=== PATIENT | female | born 1940 | race Caucasian/White ===

== ENCOUNTER → 2019-01-11 13:50 | Outpatient (CLI) | payer OTHER, SELFPAY ==
--- NOTE | 2019-01-11 | DI.ECHO.S_ITS ---
[place] +---------+ [facility] +---------+ : : [address] : : : : [id number] : : : : Phone: [phone] +---------+ Echocardiogram Report + + :Name: JORGE SHEARER Study Date: 01/11/2019 Height: 64 in : :[facility] Exam Location: [facility] Weight: 148 lb : : Gender: Female BSA: 1.7 m2 : :: 1940 Age: 78 yrs BP: 140/60 mmHg: :Reason For Study: AFIB : : Performed By: Chepe Larson : :Referring: MEL KENNY : + + Interpretation Summary 1) Normal left ventricular size, thickness, wall motoin, and systolic function (EF 65-70%). 2) Mildly enlarged right ventricle with normal function. 3) The left atrium is moderately dilated. 4) The right atrium is severely dilated. 5) There is mild to moderate aortic regurgitation. 6) There is moderate tricuspid regurgitation. 7) The right ventricular systolic pressure is estimated to be at least 45 mmHg based on an estimated right atrial pressure of 8 mm Hg. 8) Compared to the Echo done 06/12/2014, no significant change. Procedure: A two-dimensional transthoracic echocardiogram with color flow and Doppler was performed. The study quality was technically good. Comparison is made with the echocardiogram of 8/25/14. The patient was in normal sinus rhythm during the exam. Left Ventricle: The left ventricle is normal in size. There is normal left ventricular wall thickness. The ejection fraction is estimated to be 65-70%. There are no focal wall motion abnormalities. Right Ventricle: The right ventricle is mildly dilated. The right ventricular systolic function is normal. Atria: The left atrium is moderately dilated. The right atrium is severely dilated. The interatrial septum is intact with no evidence for an atrial septal defect. Mitral Valve: The mitral valve is normal in structure and function. There is mild mitral regurgitation. Aortic Valve: The aortic valve is trileaflet. The aortic valve opens well. There is no aortic valve stenosis. There is mild to moderate aortic regurgitation. Tricuspid Valve: The tricuspid valve leaflets are thin and pliable. There is moderate tricuspid regurgitation. The right ventricular systolic pressure is estimated to be at least 45 mmHg based on an estimated right atrial pressure of 8 mm Hg. Pulmonic Valve: The pulmonic valve is normal in structure and function. There is trace pulmonic regurgitation. Great Vessels: The aortic root is normal size. The dimensions of the ascending aorta are normal. The pulmonary artery is normal size. The IVC is of normal diameter and collapses less than 50% with a sniff. This suggests a right atrial pressure of 8 mm Hg. Pericardium/ Pleura There is no pericardial effusion. There is no pleural effusion. MMode/2D Measurements & Calculations LVIDd: 4.5 cm LVOT diam: 2.0 cm LVIDs: 2.2 cm Ao root diam: 2.4 cm FS: 49.7 % Aortic Jxn: 2.0 cm EPSS: 0.19 cm asc Aorta Diam: 2.9 cm IVSd: 0.80 cm Ao Arch Diam (Prox Trans): 2.5 cm LVPWd: 0.88 cm LV winn. diameter/BSA (cm/m^2): 2.6 LV sys. diameter/BSA (cm/m^2): 1.3 LA dimension: 3.9 cm RA long axis: 6.3 cm LA A2 area: 24.6 cm2 RA area: 32.4 cm2 LA A4 area: 24.1 cm2 RA vol: 142.1 ml LA length (vol): 6.4 cm RA : 82.6 ml/m2 LA vol: 78.6 ml IVC diam: 2.1 cm LA vol index: 45.7 ml/m2 RVD1 (basal): 5.1 cm RVD2 (mid): 3.9 cm Doppler Measurements & Calculations Ao V2 max: 182.9 cm/sec LVOT Max Markell: 124.6 cm/sec Ao V2 mean: 122.7 cm/sec LV V1 max P.2 mmHg Ao max P.4 mmHg LV V1 VTI: 29.6 cm Ao mean P.8 mmHg CHAO(I,D): 2.8 cm2 Ao V2 VTI: 34.7 cm CHAO(V,D): 2.2 cm2 sev ratio: 0.85 CHAO indexed to BSA (cm^2/m^2): 1.6 AI P1/2t: 599.3 msec AI dec slope: 221.1 cm/sec2 MV E max markell: 76.6 cm/sec TR max markell: 303.7 cm/sec MV A max markell: 69.8 cm/sec TR max P.9 mmHg MV E/A: 1.1 PA V2 max: 95.4 cm/sec Med Peak E' Markell: 7.6 cm/sec PA V2 mean: 70.8 cm/sec E/E' med: 10.1 PA mean P.2 mmHg Lat Peak E' Markell: 10.3 cm/sec PA pr(Accel): 36.6 mmHg E/E' lat: 7.4 PA Accel Time: 0.09 sec E/e' average: 8.8 MV dec time: 0.15 sec SV(LVOT): 96.7 ml Reading Physician:06:05 PM
== END ==
PROVIDERS: PCP Family Medicine; Visit Provider Internal Medicine Cardiovascular Disease
DX: I08.3 Combined rheumatic disorders of mitral, aortic and tricuspid valves (principal); I48.0 Paroxysmal atrial fibrillation
CPT/HCPCS: 93306

== ENCOUNTER → 2019-06-11 20:03 | Outpatient (CLI) | payer OTHER, SELFPAY | PROVIDERS: PCP Family Medicine; Visit Provider Physician Assistant | DX: N39.0 Urinary tract infection, site not specified (principal); R31.9 Hematuria, unspecified | CPT/HCPCS: 87077; 87086; 87186 ==

== ENCOUNTER → 2019-08-06 12:09 | Outpatient (CLI) | payer OTHER, SELFPAY | PROVIDERS: PCP Family Medicine; Visit Provider Nurse Practitioner | DX: R30.0 Dysuria (principal) | CPT/HCPCS: 87077; 87086 ==

== ENCOUNTER → 2019-09-06 13:55 | Outpatient (CLI) | payer OTHER, SELFPAY | PROVIDERS: PCP Family Medicine; Visit Provider Physician Assistant | DX: R30.0 Dysuria (principal) | CPT/HCPCS: 87086 ==

== ENCOUNTER → 2021-01-04 15:02 | Outpatient (CLI) | payer OTHER, SELFPAY | PROVIDERS: PCP Family Medicine; Visit Provider Physician Assistant | DX: R30.0 Dysuria (principal) | CPT/HCPCS: 87077; 87086; 87186 ==

== ENCOUNTER → 2021-04-05 10:37 | Outpatient (CLI) | payer OTHER, SELFPAY | PROVIDERS: PCP Family Medicine; Visit Provider Physician Assistant | DX: N30.00 Acute cystitis without hematuria (principal) | CPT/HCPCS: 87086 ==

== ENCOUNTER → 2021-05-28 11:01 | Outpatient (CLI) | payer OTHER, SELFPAY ==
[2021-05-28 11:48] LABS: Add Manual Diff / Slide Review NO; Basophils Absolute Auto 0 /uL (0-100); Basophils Percent Auto 0.8 % (0-2); Eosinophils Absolute Auto 0 /uL (0-450); Eosinophils Percent Auto 0.9 % (2-4); Hematocrit 37.9 % (36-46); Hemoglobin 12.6 g/dL (12.0-16.0); Lymphocytes Absolute Auto 1400 /uL (1100-4500); Lymphocytes Percent Auto 30.8 % (25-40); Mean Corpuscular HGB Conc 33.1 % (30-36); Mean Corpuscular Volume 93.6 fL (80-100); Monocytes Absolute Auto 400 /uL (0-900); Monocytes Percent Auto 9.1 % (3-14); Neutrophils Absolute Auto 2700 /uL (1500-7000); Neutrophils Percent Auto 58.4 % (50-75); Platelet Count 216 X10^3/uL (150-400); Red Blood Cell Count 4.05 X10^6/uL (4.0-5.2); White Blood Cell Count 4.6 X10^3/uL (4.5-11.0)
[2021-05-28 12:30] LABS: BUN Creatinine Ratio 33.3 (6-22); Blood Urea Nitrogen 18 mg/dL (7-17); Calcium 9.5 mg/dL (8.4-10.2); Carbon Dioxide 30 mmol/L (22-32); Chloride 102 mmol/L (98-107); Cholesterol 181 mg/dL (140-199); Estimated Glomerular Filt Rate > 60.0 mL/min (>60); Glucose 98 mg/dL (80-110); HDL Cholesterol 92 mg/dL (40-60); HEMOLYSIS < 15 (0-50); LDL Cholesterol Calculated 81 mg/dL (<100); Potassium 4.1 mmol/L (3.4-5.1); Sodium 136 mmol/L (137-145); Triglycerides 39 mg/dL (35-150)
== END ==
PROVIDERS: PCP Family Medicine; Referring Provider Internal Medicine Cardiovascular Disease; Visit Provider Internal Medicine Cardiovascular Disease
DX: E78.5 Hyperlipidemia, unspecified (principal); Z79.01 Long term (current) use of anticoagulants; I48.0 Paroxysmal atrial fibrillation
CPT/HCPCS: 36415; 80048; 80061; 85025

== ENCOUNTER → 2021-05-30 13:34 | Outpatient (CLI) | payer OTHER, SELFPAY ==
--- NOTE | 2021-05-30 | DI.ECHO.S_ITS ---
[place] +---------+ [facility] +---------+ : : [address] : : : : [id number] : : : : Phone: [phone] +---------+ Echocardiogram Report + + :Name: JORGE SHEARER Study Date: 05/30/2021 Height: 63.5 in: :[facility] ReadingLocation: Weight: 130 lb : : Gender: Female BSA: 1.6 m2 : :: 1940 Age: 81 yrs BP: 130/74 mmHg: :Reason For Study: TRICUSPID INSUFFICIENCY : :Ordering Physician: ASHLIE, : :MEL Performed By: Yessi Castillo : :Referring: MEL KENNY : + + Interpretation Summary 1) Normal left ventricular size, thickness, wall motoin, and systolic function (EF 65-70%). 2) Mildly enlarged right ventricle with normal function. 3) The left atrium is moderately dilated. 4) The right atrium is severely dilated. 5) There is mild to moderate aortic regurgitation. 6) There is moderate tricuspid regurgitation. 7) The right ventricular systolic pressure is estimated to be at least 49 mmHg based on an estimated right atrial pressure of 8 mm Hg. 8) Compared to the Echo done 01/11/2019, no significant change. Procedure: A two-dimensional transthoracic echocardiogram with color flow and Doppler was performed. The study quality was technically adequate. Comparison is made with the echocardiogram of 01/11/2019. The patient was in sinus rhythm with heart rates between 58-67 bpm during the exam. Left Ventricle: The left ventricle is normal in size and wall thickness. The ejection fraction is estimated to be 65-70%. Right Ventricle: The right ventricle is mildly dilated. The right ventricular systolic function is normal. Atria: The left atrium is moderately dilated. The right atrium is severely dilated. There is no Doppler evidence for an interatrial shunt. Mitral Valve: The mitral valve leaflets appear mildly thickened, but open well. There is mild mitral annular calcification. There is mild mitral regurgitation. Aortic Valve: The aortic valve is trileaflet. The aortic valve opens well. The aortic valve is slightly calcified. There is no aortic valve stenosis. There is mild to moderate aortic regurgitation. Tricuspid Valve: The tricuspid valve leaflets are thin and pliable. The right ventricular systolic pressure is estimated to be at least 49 mmHg based on an estimated right atrial pressure of 8 mm Hg. There is moderate tricuspid regurgitation. Pulmonic Valve: The pulmonic valve is not well seen, but is grossly normal. There is trace pulmonic regurgitation. Great Vessels: The aortic root is normal size. The dimensions of the ascending aorta are normal. The IVC is dilated (diameter is greater than 2.1 cm) yet it collapses greater than 50% with a sniff. This suggests a right atrial pressure of 8 mm Hg. Pericardium/ Pleura There is no pericardial effusion. There is no pleural effusion. MMode/2D Measurements & Calculations LVIDd: 4.8 cm LVOT diam: 2.0 cm LVIDs: 2.8 cm Ao root diam: 2.6 cm FS: 41.8 % asc Aorta Diam: 3.1 cm IVSd: 0.68 cm Ao Arch Diam (Prox Trans): 2.6 cm LVPWd: 0.71 cm LV winn. diameter/BSA (cm/m^2): 3.0 LV sys. diameter/BSA (cm/m^2): 1.7 LA A2 area: 20.7 cm2 RA long axis: 6.3 cm LA A4 area: 23.9 cm2 RA area: 25.1 cm2 LA length (vol): 5.9 cm RA vol: 84.4 ml LA vol: 71.3 ml RA : 52.1 ml/m2 LA vol index: 44.0 ml/m2 IVC diam: 2.2 cm RVD1 (basal): 3.1 cm TAPSE: 2.9 cm Doppler Measurements & Calculations Ao V2 max: 159.0 cm/sec AI P1/2t: 701.0 msec Ao V2 mean: 100.0 cm/sec AI dec slope: 183.8 cm/sec2 Ao max P.1 mmHg Ao mean P.8 mmHg Ao V2 VTI: 29.7 cm MV E max markell: 68.8 cm/sec TR max markell: 320.7 cm/sec MV A max markell: 70.6 cm/sec TR max P.1 mmHg MV E/A: 0.97 PA V2 max: 100.7 cm/sec Med Peak E' Markell: 9.9 cm/sec PA V2 mean: 67.5 cm/sec E/E' med: 7.0 PA mean P.1 mmHg Lat Peak E' Markell: 10.2 cm/sec PA pr(Accel): 22.5 mmHg E/E' lat: 6.7 E/e' average: 6.9 MV dec time: 0.22 sec Reading Physician:09:26 AM
== END ==
PROVIDERS: PCP Family Medicine; Referring Provider Internal Medicine Cardiovascular Disease; Visit Provider Internal Medicine Cardiovascular Disease
DX: I08.3 Combined rheumatic disorders of mitral, aortic and tricuspid valves (principal)
CPT/HCPCS: 93306

== ENCOUNTER → 2021-09-24 12:10 | Outpatient (CLI) | payer OTHER, SELFPAY ==
--- NOTE | 2021-09-24 12:13 | DI.US.S_ITS ---
PROCEDURE: US PELVIC COMPLETE INDICATIONS: PELVIC PAIN; CHANGE IN BOWEL HABITS TECHNIQUE: Real-time scanning was performed of the pelvic organs, with image documentation. Additional endovaginal scanning was necessary due to incomplete visualization of the adnexal and endometrial structures by transabdominal scanning. COMPARISON: None. FINDINGS: Uterus: Uterus is surgically absent. No gross abnormality is seen in vaginal cuff region. Ovaries: Bilateral ovaries are surgically absent. No adnexal mass or fluid is seen. Other: No pathologic free abdominal or pelvic fluid. IMPRESSION: Prior hysterectomy and bilateral oophorectomy. No abnormality is seen in pelvis. We strive to produce accurate, complete, and clear reports of imaging services. To assist us in improving patient care, this report was composed using standard report templates and voice recognition software. Therefore, it may contain abnormal punctuation, insertions and/or omissions. Occasional wrong-word or sound-alike substitutions may occur. Though we review the report and make efforts to correct it, we do recommend that the report be read carefully in proper context to recognize any text inaccuracies. Dictated by: Alexx Blandon M.D. on 09/24/2021 at 14:13 Approved by: Alexx Blandon M.D. on 09/24/2021 at 14:14
--- NOTE | 2021-09-24 12:13 | DI.US.S_ITS ---
PROCEDURE: US ABDOMEN COMPLETE INDICATIONS: PELVIC PAIN; CHANGE IN BOWEL HABITS TECHNIQUE: Real-time scanning was performed of the abdominal and retroperitoneal organs, with image documentation. COMPARISON: None. FINDINGS: Liver: Liver is normal in size and homogeneous in echotexture. Gallbladder: Hydropic appearance of the gallbladder. No wall thickening, pericholecystic fluid, or shadowing gallstones. Biliary ducts: Intrahepatic bile ducts are non-dilated. Extrahepatic bile duct caliber measures 8.4 mm. Echogenic material within the CBD, which may reflect sludge. Pancreas: Visualized portions of the pancreas are sonographically normal. Spleen: Spleen is normal in size and homogeneous in echotexture. Kidneys: Kidneys are normal in size and echotexture. Right kidney measures 11.4 cm long; left kidney measures 11.4 cm long. No hydronephrosis or nephrolithiasis. No solid masses. Aorta: Visualized aorta is normal in caliber at less than 3 cm. Iliacs: Proximal common iliac arteries are normal in caliber at less than 2.5 cm. IVC: Intrahepatic inferior vena cava is patent. Miscellaneous: No free abdominal fluid. IMPRESSION: 1. Hydropic appearance of the gallbladder with possible sludge in the CBD. Dictated by: Harinder Pike M.D. on 09/24/2021 at 14:39 Approved by: Harinder Pike M.D. on 09/24/2021 at 14:42
== END ==
PROVIDERS: PCP Family Medicine; Referring Provider Family Medicine; Visit Provider Family Medicine
DX: R10.2 Pelvic and perineal pain (principal); R19.4 Change in bowel habit; Z90.710 Acquired absence of both cervix and uterus; Z90.722 Acquired absence of ovaries, bilateral
CPT/HCPCS: 76700; 76830; 76856

== ENCOUNTER → 2022-05-15 09:16 | Outpatient (CLI) | payer OTHER, SELFPAY ==
--- NOTE | 2022-05-15 | DI.ECHO.S_ITS ---
[place] +---------+ Hospital +---------+ : : [address] : : : : [id number] : : : : Phone: [phone] : : [phone] +---------+ Echocardiogram Report + + :Name: JORGE SHEARER Study Date: 05/15/2022 Height: 63 in : :[facility] ReadingLocation: Weight: 135 lb : : Gender: Female BSA: 1.6 m2 : :: 1940 Age: 82 yrs BP: 157/89 mmHg: :Reason For Study: TRICUSPID INSUFFICIENCY : :Ordering Physician: ASHLIE, : :MEL Performed By: Yessi Castillo : :Referring: MEL KENNY : + + Interpretation Summary 1) Normal left ventricular size, thickness, wall motion, and systolic function (EF 60-65%). 2) Mildly enlarged right ventricle with normal function. 3) Severe biatrial enlargement. 4) There is mild to moderate mitral regurgitation. 5) There is mild to moderate aortic regurgitation. 6) There is moderate tricuspid regurgitation. 7) The right ventricular systolic pressure is estimated to be at least 40 mmHg based on an estimated right atrial pressure of 3 mm Hg. 8) Compared to the Echo done 05/30/2021, mitral regurgitation has increased from mild to mild-moderate on this study. Procedure: A two-dimensional transthoracic echocardiogram with color flow and Doppler was performed. The study quality was technically good. Comparison is made with the echocardiogram of 05/30/2021. The patient was in sinus rhythm with heart rates between 60-65 bpm during the exam. Left Ventricle: The left ventricle is normal in size and wall thickness. The ejection fraction is estimated to be 60-65%. Left ventricular systolic function appears normal without focal wall motion abnormalities. Right Ventricle: The right ventricle is normal in size and function. Atria: The left atrium is severely dilated. The right atrium is severely dilated. There is no Doppler evidence for an interatrial shunt. Mitral Valve: The mitral valve leaflets appear mildly thickened, but open well. There is mild mitral annular calcification. There is mild to moderate mitral regurgitation. Aortic Valve: The aortic valve is slightly calcified. The aortic valve is trileaflet. The aortic valve opens well. There is no aortic valve stenosis. There is mild to moderate aortic regurgitation. Tricuspid Valve: The tricuspid valve leaflets are thin and pliable. There is moderate tricuspid regurgitation. The right ventricular systolic pressure is estimated to be at least 40 mmHg based on an estimated right atrial pressure of 3 mm Hg. Pulmonic Valve: The pulmonic valve leaflets are thin and pliable; valve motion is normal. There is no pulmonic valvular regurgitation. Great Vessels: The aortic root is normal size. The dimensions of the ascending aorta are normal. The IVC is of normal diameter and collapses greater than 50% with a sniff. This suggests a low right atrial pressure of 3 mm Hg. Pericardium/ Pleura There is no pericardial effusion. There is no pleural effusion. MMode/2D Measurements & Calculations LVIDd: 4.1 cm LVOT diam: 2.0 cm LVIDs: 2.5 cm Ao root diam: 2.7 cm FS: 39.4 % asc Aorta Diam: 3.1 cm IVSd: 0.77 cm Ao Arch Diam (Prox Trans): 2.6 cm LVPWd: 0.78 cm LV winn. diameter/BSA (cm/m^2): 2.5 LV sys. diameter/BSA (cm/m^2): 1.5 LA A2 area: 25.2 cm2 RA long axis: 6.0 cm LA A4 area: 24.7 cm2 RA area: 24.9 cm2 LA length (vol): 5.5 cm RA vol: 87.7 ml LA vol: 96.1 ml RA : 53.6 ml/m2 LA vol index: 58.7 ml/m2 IVC diam: 1.8 cm RVD1 (basal): 3.3 cm RVD2 (mid): 2.8 cm TAPSE: 3.3 cm Doppler Measurements & Calculations Ao V2 max: 166.0 cm/sec LVOT Max Markell: 134.9 cm/sec Ao V2 mean: 110.2 cm/sec LV V1 max P.3 mmHg Ao max P.0 mmHg LV V1 VTI: 31.0 cm Ao mean P.7 mmHg CHAO(I,D): 2.6 cm2 Ao V2 VTI: 36.5 cm CHAO(V,D): 2.5 cm2 sev ratio: 0.85 CHAO indexed to BSA (cm^2/m^2): 1.6 AI P1/2t: 720.6 msec AI dec slope: 178.5 cm/sec2 MV E max markell: 88.7 cm/sec TR max markell: 305.0 cm/sec MV A max markell: 87.8 cm/sec TR max P.2 mmHg MV E/A: 1.0 PA V2 max: 99.0 cm/sec Med Peak E' Markell: 11.6 cm/sec PA V2 mean: 72.6 cm/sec E/E' med: 7.6 PA mean P.3 mmHg Lat Peak E' Markell: 11.9 cm/sec PA pr(Accel): 37.9 mmHg E/E' lat: 7.5 E/e' average: 7.6 MV dec time: 0.19 sec SV(LVOT): 96.7 ml Reading Physician:10:27 AM
== END ==
PROVIDERS: PCP Family Medicine; Referring Provider Internal Medicine Cardiovascular Disease; Visit Provider Internal Medicine Cardiovascular Disease
DX: I08.3 Combined rheumatic disorders of mitral, aortic and tricuspid valves (principal); I27.20 Pulmonary hypertension, unspecified
CPT/HCPCS: 93306

== ENCOUNTER → 2022-09-04 10:35 | Outpatient (CLI) | payer OTHER, SELFPAY ==
[2022-09-04 11:51] LABS: COVID19 -Nasal RAPID Negative (Negative)
--- NOTE | 2022-09-04 19:17 | DI.NM.S_ITS ---
DATE OF SERVICE: 09/04/2022 PROCEDURE: Exercise perfusion study. INDICATION: Paroxysmal AFib with underlying hypertension. RADIOPHARMACEUTICAL: 25.6 millicurie technetium-99m Myoview IV was injected at stress and 12.5 millicurie technetium-99m Myoview IV was injected at rest. CARDIAC STRESS: The patient underwent exercise perfusion study under the supervision of an attending staff. The patient walked on [place] protocol for 6 minutes and 47 seconds, achieved 99 percent of target heart rate. Resting blood pressure 138/80 and peak blood pressure 172/80. Achieved 7 METs of workload. CICI -40 percent. Baseline rhythm sinus. During stress, no convincing ischemic changes seen. No significant arrhythmias seen. No chest pain. The patient felt fatigue. RAW DATA: There is increased subdiaphragmatic activity. GATED STUDY: Stress LV ejection fraction 81 percent without any obvious wall motion abnormalities. Resting end-diastolic volume 86 mL. TID ratio 1.17, which is within normal limits. Lung/heart ratio 0.32, which is within normal. Normal limits. MYOCARDIAL PERFUSION SCAN: Stress supine and resting supine and stress prone images were compared to each other. Stress supine images revealed minimally decreased perfusion of inferoapex and basal inferoseptum, which got completely resolved during stress prone images. Stress prone images revealed normal myocardial perfusion. CONCLUSION: This is a normal myocardial perfusion study with evidence of diaphragmatic tissue attenuation artifact, which got resolved during prone images. Prone images revealed normal myocardial perfusion. Preserved left ventricular function. The patient achieved 7 metabolic equivalents of workload. Normal hemodynamic response. No complex arrhythmias. Overall, low-risk myocardial perfusion study. Elda Chang - Edgard/dalia doc#: [id number]/job#: [id number] dd: 09/04/2022 17:09:00 dt: 09/04/2022 18:25:00 DICTATING MD/COPIES TO: Shantelle Adams MD COPIES MNE: KANDY;
== END ==
PROVIDERS: PCP Family Medicine; Referring Provider Internal Medicine Cardiovascular Disease; Visit Provider Internal Medicine Cardiovascular Disease
DX: I48.0 Paroxysmal atrial fibrillation (principal); Z20.822 Contact with and (suspected) exposure to COVID-19; I10 Essential (primary) hypertension
CPT/HCPCS: 78452; 87635; 93017; A9502

== ENCOUNTER → 2024-07-25 16:08 | Outpatient (CLI) | payer OTHER, SELFPAY ==
--- NOTE | 2024-07-25 16:09 | DI.ECHO.S_ITS ---
[place] +---------+ Hospital : : [address] : [address] : : [id number] : : Phone: [phone] Echocardiogram Report + + :Name: JORGE SHEARER Study Date: 07/25/2024 Height: 63 in : :Hospital ReadingLocation: Weight: 130 lb : : Gender: Female BSA: 1.6 m2 : :: 1940 Age: 84 yrs BP: 133/71 mmHg: :Reason For Study: NONRHEUMATIC TRICUSPID VALVE REGURGE : :Ordering Physician: ASHLIE, : :MEL Performed By: Elmer Yo : :Referring: MEL EKNNY : + + Interpretation Summary 1) Normal left ventricular thickness, size, wall motion, and systolic function (EF 60-65%). 2) Mildly enlarged right ventricle with normal function. 3) There is severe biatrial enlargement, right worse than left. 4) There is mild aortic stenosis (valve area 1.9cm2, mean gradient 12mmHg). 5) There is mild to moderate aortic regurgitation. 6) There is moderate to severe tricuspid regurgitation. 7) The right ventricular systolic pressure is estimated to be at least 62 mmHg based on an estimated right atrial pressure of 8 mm Hg. 8) Compared to the Echo done 05/15/2022, systolic PA pressure has increased from 40mmHg to 62mmHg on this study. Procedure: A two-dimensional transthoracic echocardiogram with color flow and Doppler was performed. The study quality was technically good. Comparison is made with the echocardiogram of 05/15/2022. The patient was in normal sinus rhythm during the exam. Left Ventricle: The left ventricle is normal in size. There is normal left ventricular wall thickness. There is no ventricular septal defect visualized. The ejection fraction is estimated to be 60-65%. There are no focal wall motion abnormalities. Right Ventricle: The right ventricle is mildly dilated. The right ventricular systolic function is normal. Atria: There is severe biatrial enlargement. The interatrial septum grossly appears intact with no obvious evidence for an atrial septal defect. Mitral Valve: The mitral valve is normal in structure and function. There is mild mitral regurgitation. Aortic Valve: The aortic valve is trileaflet. The aortic valve opens well. The aortic valve is mildly calcified. There is mild aortic stenosis. There is mild to moderate aortic regurgitation. Tricuspid Valve: The tricuspid valve is normal in structure and function. There is moderate to severe tricuspid regurgitation. The right ventricular systolic pressure is estimated to be at least 62 mmHg based on an estimated right atrial pressure of 8 mm Hg. Pulmonic Valve: The pulmonic valve is normal in structure and function. There is trace pulmonic regurgitation. Great Vessels: The aortic root is normal size. The dimensions of the ascending aorta are normal. The pulmonary artery is normal size. The IVC is dilated (diameter is greater than 2.1 cm) yet it collapses greater than 50% with a sniff. This suggests a right atrial pressure of 8 mm Hg. Pericardium/ Pleura There is no pericardial effusion. There is no pleural effusion. MMode/2D Measurements & Calculations LVIDd: 4.2 cm LVOT diam: 1.9 cm LVIDs: 2.6 cm Ao root diam: 2.7 cm FS: 37.0 % asc Aorta Diam: 3.1 cm EPSS: 0.49 cm Ao Arch Diam (Prox Trans): 2.4 cm IVSd: 0.72 cm LVPWd: 0.68 cm LV winn. diameter/BSA (cm/m^2): 2.6 LV sys. diameter/BSA (cm/m^2): 1.6 LA A2 area: 24.5 cm2 RA long axis: 7.1 cm LA A4 area: 25.4 cm2 RA area: 33.9 cm2 LA length (vol): 5.8 cm RA vol: 137.8 ml LA vol: 90.5 ml RA : 85.6 ml/m2 LA vol index: 56.2 ml/m2 IVC diam: 2.3 cm RVD1 (basal): 4.1 cm RVD2 (mid): 2.9 cm TAPSE: 3.5 cm Doppler Measurements & Calculations Ao V2 max: 255.0 cm/sec LVOT Max Markell: 148.1 cm/sec Ao V2 mean: 162.2 cm/sec LV V1 max P.8 mmHg Ao max P.0 mmHg LV V1 VTI: 34.6 cm Ao mean P.4 mmHg CHAO(I,D): 1.9 cm2 Ao V2 VTI: 52.5 cm CHAO(V,D): 1.7 cm2 sev ratio: 0.66 CHAO indexed to BSA (cm^2/m^2): 1.2 AI P1/2t: 385.5 msec AI dec slope: 384.2 cm/sec2 MV E max markell: 90.3 cm/sec TR max markell: 368.1 cm/sec MV A max markell: 75.0 cm/sec TR max P.2 mmHg MV E/A: 1.2 PA V2 max: 99.2 cm/sec Med Peak E' Markell: 8.2 cm/sec PA V2 mean: 71.4 cm/sec E/E' med: 11.0 PA mean P.3 mmHg Lat Peak E' Markell: 10.0 cm/sec PA pr(Accel): 34.5 mmHg E/E' lat: 9.1 E/e' average: 10.0 MV dec time: 0.19 sec SV(LVOT): 101.8 ml Reading Physician:10:04 AM
== END ==
PROVIDERS: PCP Family Medicine; Referring Provider Internal Medicine Cardiovascular Disease; Visit Provider Internal Medicine Cardiovascular Disease
DX: I08.3 Combined rheumatic disorders of mitral, aortic and tricuspid valves (principal)
CPT/HCPCS: 93306